=== PATIENT | male | born 1965 | race African-American/Black ===

== ENCOUNTER 2023-03-12 18:45 | Inpatient (IN) | payer MEDICAID ==
[~2023-03-12] VITALS: Ht 177.8 cm; Wt 97.7 kg
[~2023-03-12 18:45] MED LIST: NOCURR
[2023-03-12 19:18] LABS: BASOPHILS % (AUTO) 0.6 % (0.0-2.0); EOSINOPHILS % (AUTO) 2.6 % (1.0-6.0); HEMOGLOBIN 15.2 g/dL (13.5-17.5); LYMPHOCYTES # (AUTO) 1.9 K/uL (1.0-4.8); LYMPHOCYTES % (AUTO) 23.9 % (22.0-44.0); MEAN CORPUSCULAR HGB CONC 32.4 G/dL (31.0-37.0); MEAN CORPUSCULAR VOLUME 93 fL (80-100); MONOCYTES # (AUTO) 0.9 K/uL (0.1-1.0); MONOCYTES % (AUTO) 11.2 % (2.0-9.0); NEUTROPHILS % (AUTO) 61.7 % (40.0-70.0); PLATELET COUNT (AUTO) 268 K/uL (150-450); RED BLOOD CELL COUNT(AUTO) 5.08 MIL/uL (4.50-5.90); RED CELL DISTRIBUTION WIDTH 15.9 % (11.5-14.5)
[2023-03-12 19:25] LABS: ANION GAP 8 mmol/L (8-16); CALCIUM, TOTAL 9.5 mg/dL (8.8-10.5); CARBON DIOXIDE 29 mmol/L (22-29); CHLORIDE 102 mmol/L (98-107); CREATININE 1.28 mg/dL (0.60-1.30); GLOMERULAR FILTR. RATE CALC > 60 mL/min (>60); GLUCOSE,RANDOM 127 mg/dL (70-110); POTASSIUM 4.2 mmol/L (3.5-5.1); SODIUM SERUM 139 mmol/L (136-145)
[2023-03-12] MEDS ORDERED: SODIUM CHLORIDE 0.9% 100 ML ONE (19:26)
[2023-03-12] MEDS ORDERED: IOHEXOL 350 MG/ML 100 ML VIAL ONE (19:26)
[2023-03-12] MEDS ORDERED: APIX5TAB PO (19:29)
[2023-03-12 19:30] LABS: ALANINE AMINOTRANSFERASE 31 U/L (12-78); ALBUMIN 3.7 g/dL (3.4-5.0); ALKALINE PHOSPHATASE 116 U/L (46-116); ASPARTATE AMINOTRANSFERASE 31 U/L (15-37); BILIRUBIN,TOTAL 0.4 mg/dL (0.1-1.0); TOTAL PROTEIN, SERUM 8.7 g/dL (6.4-8.2)
[2023-03-12] MEDS ORDERED: SPIR-37 PO (19:30)
[2023-03-12] MEDS ORDERED: FAMO20 PO (19:31)
[2023-03-12] MEDS ORDERED: BUME1TAB34 PO (19:32)
[2023-03-12] MEDS ORDERED: CARV3.1231 PO (19:33)
[2023-03-12 19:34] LABS: B-TYPE NATRIURETIC PEPTIDE 301 pg/mL (0-100)
[2023-03-12] MEDS ORDERED: VALS40TA4 PO (19:36)
[2023-03-12] MEDS ORDERED: PREG20SO PO (19:37)
[2023-03-12] MEDS ORDERED: ATOR20TA65 PO (19:38)
[2023-03-12] MEDS ORDERED: DAPA10TA PO (19:45)
[2023-03-12] MEDS ORDERED: ASPI81TA87 PO (19:46)
[2023-03-12] MEDS ORDERED: ACETAMINOPHEN 325 MG TABLET PO PRN (20:45)
[2023-03-12] MEDS ORDERED: ONDANSETRON HCL 4 MG/2 ML VIAL IVP PRN (20:45)
[2023-03-12] MEDS ORDERED: MAGNESIUM HYDROXIDE SUSPENSION 30 ML UDCUP PO PRN (20:45)
[2023-03-12 20:48] LABS: APPEARANCE,URINE CLEAR (CLEAR); BILIRUBIN,URINE NEGATIVE (NEGATIVE); GLUCOSE, URINE (UA) >=1000 mg/dL (NEGATIVE); KETONES,URINE NEGATIVE (NEGATIVE); LEUKOCYTE ESTERASE ,URINE NEGATIVE (NEGATIVE); NITRATE,URINE NEGATIVE (NEGATIVE); OCCULT BLOOD,URINE NEGATIVE (NEGATIVE); PH,URINE 6.5 (5.0-8.0); PROTEIN,URINE NEGATIVE (NEGATIVE); SPECIFIC GRAVITIY, URINE 1.025 (1.003-1.030); UROBILINOGEN,URINE <=1.0 mg/dL (<=1.0)
[2023-03-12 21:01] LABS: AMPHET/METH SCREEN,URINE POSITIVE (NEGATIVE); BARBITURATE SCREEN, URINE NEGATIVE (NEGATIVE); BENZODIAZEPINES SCREEN,URINE NEGATIVE (NEGATIVE); CANNABINOID SCREEN,URINE POSITIVE (NEGATIVE); COCAINE SCREEN,URINE POSITIVE (NEGATIVE); METHADONE SCREEN, URINE NEGATIVE (NEGATIVE); OPIATE SCREEN,URINE NEGATIVE (NEGATIVE); PHENCYCLIDINE SCREEN,URINE NEGATIVE (NEGATIVE)
[2023-03-12 21:03] LABS: BACTERIA,URINE None Seen /HPF (None Seen); RBC,URINE 0-2 /HPF (0-2); SQUAMOUS EPITHELIAL CELL,UR Rare /LPF (None Seen); WBC,URINE 0-2 /HPF (0-5)
[2023-03-12 21:49] VITALS: BP 106/72
[2023-03-12] MEDS: APIXABAN 5 MG TABLET PO SCH (22:08)
[2023-03-13 04:33] VITALS: BP 104/64
[2023-03-13 08:22] VITALS: BP 105/73
[2023-03-13] MEDS ORDERED: FAMOTIDINE 20 MG TABLET PO SCH (09:00)
[2023-03-13] MEDS ORDERED: ATORVASTATIN CALCIUM 20 MG TABLET PO SCH (09:00)
[2023-03-13] MEDS ORDERED: ASPIRIN 81 MG CHEWABLE TABLET PO SCH (09:00)
[2023-03-13] MEDS: APIXABAN 5 MG TABLET PO SCH (09:04)
[2023-03-13 11:21] VITALS: BP 98/66
== END 2023-03-13 14:30 | disposition home or self-care (01) | DRG 198 ==
LOC: EMS 18:47 → 5S 20:30
PROVIDERS: ADMIT Internal Medicine; ATTEND Internal Medicine
PROC: HZ34ZZZ Individual Counseling for Substance Abuse Treatment, Interpersonal (ICD-10-PCS; principal; 2023-03-12)
DX: I24.8 Other forms of acute ischemic heart disease (principal); I11.0 Hypertensive heart disease with heart failure; I95.9 Hypotension, unspecified; I50.9 Heart failure, unspecified; F15.10 Other stimulant abuse, uncomplicated; F17.200 Nicotine dependence, unspecified, uncomplicated; I44.7 Left bundle-branch block, unspecified; G89.29 Other chronic pain; Z71.51 Drug abuse counseling and surveillance of drug abuser; Z79.01 Long term (current) use of anticoagulants; Z79.899 Other long term (current) drug therapy
CPT/HCPCS: 71045; 71260; 72193; 74160; 80053; 80307; 81001; 83690; 83880; 84484; 85025; 93005; 99291; G0378; J7050; Q9967; 36415-L1; 36415-TC